=== PATIENT | male | born 1970 | race Two or more races ===

== ENCOUNTER 2022-09-03 22:32 | Observation (INO) | payer BC ==
[~2022-09-03] VITALS: Ht 170.2 cm; Wt 69.4 kg
[2022-09-03 22:42] VITALS: BP_SYST 136
--- NOTE | 2022-09-03 22:48 | NUR ---
PT HERE FOR EVAL. PT STATED THAT HE ACCIDENTALLY TOOK DOUBLE DOSE OF HIS ROUTINE MEDS TONIGHT. PER PT HE TOOK THEM AT 193 AND AT 2129: ATORVASTATIN, MEFORMIN,GLIPIZIDE, MYSOLIN,SINGULAIR. DENIES OTHER SYMPTOMS AND COMPLAINS. PT DENIES DIZZINESS, DENIES BLURRY VISION. PMH:DM PT AAOX4, NO SOB NOTED AND NAD. PT SEEN AND EXAMINE BY DR. DUTTON.
--- NOTE | 2022-09-03 22:50 | NUR ---
PER PT HE CALLED POISON CONTROL PRIOR TO ER ARRIVAL AND WAS TO TO GO TO ER FOR FURTHER EVAL
--- NOTE | 2022-09-03 22:54 | NUR ---
TRIAGE BLOOD SUGAR 158
[2022-09-03 23:17] LABS: BASOPHILS # (AUTO) 0.2 K/uL (0.0-0.2); BASOPHILS % (AUTO) 2.1 % (0.0-2.0); EOSINOPHILS # (AUTO) 0.1 K/uL (0.0-0.4); EOSINOPHILS % (AUTO) 1.6 % (0.0-4.0); HEMATOCRIT 41.6 % (36-54); HEMOGLOBIN 14.6 g/dL (14.0-18.0); LYMPHOCYTES # (AUTO) 1.8 K/uL (1.0-5.5); LYMPHOCYTES % (AUTO) 22.7 % (20.5-51.5); MEAN CORPUSCULAR HEMOGLOBIN 30 pg (27-31); MEAN CORPUSCULAR HGB CONC 35 % (32-36); MEAN CORPUSCULAR VOLUME 87 fL (79.0-98.0); MONOCYTES # (AUTO) 0.6 K/uL (0.0-1.0); NEUTROPHILS # (AUTO) 5.3 K/uL (1.8-7.7); NEUTROPHILS % (AUTO) 66.6 % (40.0-70.0); PLATELET COUNT (AUTO) 197 K/uL (130-430); RED BLOOD CELL COUNT(AUTO) 4.78 MIL/uL (4.2-6.2); RED CELL DISTRIBUTION WIDTH 12.8 % (9.0-15.0)
[2022-09-03 23:39] LABS: ANION GAP 5 (5-15); CALCIUM 9.5 mg/dL (8.4-11.0); CHLORIDE 106 mmol/L (98-107); CREATININE 0.93 mg/dL (0.55-1.30); GLUCOSE 155 mg/dL (70-99); UREA NITROGEN, BLOOD 21 mg/dL (8-21)
[2022-09-03 23:40] LABS: GFR AFRICAN AMERICAN 110 mL/min (>90)
[2022-09-03 23:58] LABS: ALANINE AMINOTRANSFERASE 27 U/L (12-78); ASPARTATE AMINOTRANSFERASE 17 U/L (10-37); LIPASE 105 U/L (73-393); TOTAL BILIRUBIN 1.9 mg/dL (0.0-1.0)
--- NOTE | 2022-09-04 01:00 | NUR ---
Patient to ER bed 4 to gown for evaluation. Side rails up. Report given to BEAN MONGE(REG).
[2022-09-04] MEDS ORDERED: DEXTROSE 50% JECT 50 ML DISP.SYRIN IVP ONE (01:30)
[2022-09-04] MEDS ORDERED: D5NS 1,000 ML IV ONE (01:30)
--- NOTE | 2022-09-04 02:37 | NUR ---
Called Poison Control at [phone] and spoke with MS SEWELL.Per MS Sewell recommendations:patient should be closely monitored for 24hours, with hourly Blood glucose check with continous D5NS infusion. Patient could be D/C after blood sugar is stable . According to Ms Sewell, patient can be d/c home at least six hours after the D5NS continuos infusion is stopped and blood sugar is stable. notified. Will continue to monitor patient.
--- NOTE | 2022-09-04 03:14 | NUR ---
Blood Sugar check, result- 66mmhh, Dr Wei notified and order received , will continue to monitor
--- NOTE | 2022-09-04 03:51 | NUR ---
Dr Mcadams discontinue D5-NS 1L and ordered D10%-water @ 150ml/hr.
[2022-09-04] MEDS: D10W 1,000 ML IV SCH (03:53)
[2022-09-04] MEDS ORDERED: OCTREOTIDE ACETATE 50 MCG/ML AMP IVP ONE (04:00)
[2022-09-04] MEDS ORDERED: OCTREOTIDE ACETATE 200 MCG/1 ML 5ML VIAL ONE (05:20)
--- NOTE | 2022-09-04 05:41 | NUR ---
Admit bed requested Patient will be admitted to care of . Admitted to ICU unit. Diagnosis HYPOGLYCEMIA Inpatient (Yes or No) YES Observation (Yes or No) NO Orientation concerns or request close to nursing station (Yes or No) NO Covid Status NEGATIVE On vent or bipap NO Isolation requirements NO Needs a sitter NO From Home (Yes or if No enter name of facility) YES Requires Dialysis (Yes or No) NO Med Rec Completed (Yes of No) PENDING
[2022-09-04] MEDS ORDERED: D10W 1,000 ML IV SCH (05:45)
--- NOTE | 2022-09-04 07:39 | NUR ---
REPORT ON PATIENT AT THIS TIME, PATIENT ALERT AND ORIENTED X 3, DENIES PAIN, NSR ON THE GUEST RELATIONS EXECUTIVE, VSS, D10 INFUSING AT 150CC/HR, PATIENT TOLRATING AT THIS TIME. CALL LIGHT IN REACH, SIDE RAILS UP X 1, PATIENT GIVEN URINAL, COMFORT AND SAFETY MAINTAINED, PATIENT WAITING FOR ICU BED AT THIS TIME.
--- NOTE | 2022-09-04 09:15 | NUR ---
PATIENT BS 287 NOTFIED AT THIS TIME.
--- NOTE | 2022-09-04 09:21 | NUR ---
D10 OFF AT THIS TIME, WILL MONITOR PATIENT'S BS. PATIENT ASYMPTOMATIC
--- NOTE | 2022-09-04 11:15 | NUR ---
PT WAS BROUGHT HERE BY MIGUEL FOR OVERDOSE OF GLIPIZIDE IN AM THE BLOOD SUGAR DROPS. PT WAS A/OX4, D10W WAS HOLD SINCE PT'S SUGAR PICKED UP.
--- NOTE | 2022-09-04 11:23 | NUR ---
Patient will be admitted to care of . Admitted to unit. Will go to room . Belongings list completed. Complete and up to date summary report printed. SBAR report to be given at bedside with opportunity for questions.
[2022-09-04 12:00] VITALS: BP_SYST 123
[2022-09-04 13:00] VITALS: BP_SYST 114
[2022-09-04 13:44] VITALS: BP_SYST 132
[2022-09-04 14:00] VITALS: BP_SYST 129
[2022-09-04 15:00] VITALS: BP_SYST 115
--- NOTE | 2022-09-04 15:04 | NUR ---
Angela WILLAMS DR AT BEDSIDE EXAMINING THE PATIENT.
[2022-09-04 15:45] VITALS: BP_SYST 128
--- NOTE | 2022-09-04 16:15 | NUR ---
DISCHARGE INSTRUCTIONS GIVEN TO THE PATIENT, WILL BE WAITING FOR HIS TO TAKE HIM HOME.
--- NOTE | 2022-09-04 16:47 | NUR ---
HOME WHEELED PT OUT, SALINE LOCK AND IDENTIFICATION BAND REMOVED. ALL PERSONAL BELONGINGS WITH THE PATIENT.
== END 2022-09-04 16:45 | disposition home or self-care (01) ==
LOC: SED 22:32 → SIC 09-04 05:39 → INTOOBSV 09-04 05:39 → SIC 09-04 11:10
PROVIDERS: ADMIT Internal Medicine; ATTEND Internal Medicine
DX: T38.3X1A Poisoning by insulin and oral hypoglycemic [antidiabetic] drugs, accidental (unintentional), initial encounter (principal); Z20.822 Contact with and (suspected) exposure to COVID-19; E11.65 Type 2 diabetes mellitus with hyperglycemia; Z79.899 Other long term (current) drug therapy
CPT/HCPCS: 99291; 80053; 82962 ×2; 83880; 83690; 85025; 84484; 36415; 93005; 96361 ×2; 96374; 96375; 87426; J2354; G0378